=== PATIENT | male | born 1935 ===

== ENCOUNTER 2017-12-30 11:01 | Emergency (ER) | payer OTHER ==
[2017-12-30 11:18] VITALS: RESP 16; TEMP 98; O2SAT 97
--- NOTE | 2017-12-30 12:15 | C.PDOC ---
History Of Present Illness Patient is an 82yo male, with history of diabetes, presents to ED stating he "slept funny" 4 days ago and has left sided neck and shoulder pain. Patient reports pain is worse with movement. He denies any associated chest pain or heavy lifting. Patient states he took Tylenol with mild relief of pain. He offers no other medical complaints. No SOB. PMD: Dr. Birmingham Time Seen by Provider: 12/30/17 11:31 Chief Complaint (Nursing): Upper Extremity Problem/Injury History Per: Patient History/Exam Limitations: no limitations Onset/Duration Of Symptoms: Days Current Symptoms Are (Timing): Still Present Quality: "Pain" Exacerbating Factor(s): Movement Additional History Per: Patient Past Medical History Reviewed: Historical Data, Nursing Documentation, Vital Signs Vital Signs: Last Vital Signs Temp 98 F 12/30/17 11:14 Pulse 98 H 12/30/17 12:21 Resp 16 12/30/17 12:21 BP 151/78 H 12/30/17 12:21 Pulse Ox 97 12/30/17 13:08 - Medical History PMH: Diabetes Surgical History: No Surg Hx Family History: States: Diabetes - Social History Hx Tobacco Use: No Hx Alcohol Use: No Hx Substance Use: No - Immunization History Hx Tetanus Toxoid Vaccination: No Hx Influenza Vaccination: Yes Hx Pneumococcal Vaccination: Yes Review Of Systems Except As Marked, All Systems Reviewed And Found Negative. Cardiovascular: Negative for: Chest Pain Musculoskeletal: Positive for: Neck Pain (left), Shoulder Pain (left) Physical Exam - Physical Exam Appears: Non-toxic, No Acute Distress Skin: Normal Color, Warm, Dry Head: Atraumatic Eye(s): bilateral: Normal Inspection Ear(s): Bilateral: Normal Nose: Normal Lips: Normal Appearing Neck: Normal ROM, No Midline Cervical Tenderness, No Paracervical Tenderness, Supple Chest: Symmetrical Cardiovascular: Rhythm Regular Respiratory: Normal Breath Sounds Gastrointestinal/Abdominal: Normal Exam Extremity: No Normal ROM (+ Pain with ROM of left shoulder. no warmth noted. (+ ) tenderness left lateral shoulder), No Deformity Neurological/Psych: Oriented x3 ED Course And Treatment ECG: Interpreted By Me, Viewed By Me ECG Rhythm: Sinus Rhythm, R BBB ECG Interpretation: Normal O2 Sat by Pulse Oximetry: 97 (RA) Pulse Ox Interpretation: Normal Medical Decision Making Medical Decision Making: Impression: Arthritis, shoulder strain Plan: -- Motrin 600mg PO -- Pepcid 20mg PO EKG: sinus, RBBB, no acute findings Progress note: 12:17 PM - pts pain is better; looks well; will d/c home. Disposition Counseled Patient/Family Regarding: Studies Performed, Diagnosis, Need For Followup, Rx Given - Disposition Disposition: HOME/ ROUTINE Disposition Time: 12:11 Condition: IMPROVED Additional Instructions: Mr. Collazo, thank you for letting us take care of you today. Return to the ER if your symptoms worsen, or if any problems. Take the medication listed below as prescribed. Follow up with Dr. Birmingham in 2-3 days for a re-evaluation. Prescriptions: Ibuprofen [Motrin Tab] 1 tab PO Q8 PRN #30 tab PRN Reason: Pain, Moderate (4-7) Ranitidine HCl [Zantac] 1 tab PO BID #40 tablet Instructions: Shoulder Pain (DC) Forms: [employer] (Eth[place]ian) Print Language: EQUATORIAL GUINEAN - POA Present On Arrival: None - Clinical Impression Clinical Impression: Shoulder strain - Scribe Statement The provider has reviewed the documentation as recorded by the Scribe (Julia Perry) Provider Attestation: All medical record entries made by the Scribe were at my direction and personally dictated by me. I have reviewed the chart and agree that the record accurately reflects my personal performance of the history, physical exam, medical decision making, and the department course for this patient. I have also personally directed, reviewed, and agree with the discharge instructions and disposition.
[2017-12-30 12:21] VITALS: BP 151/78; PULSE 98
== END 2017-12-30 12:21 | disposition home or self-care (01) ==
LOC: C.ER 11:01
DX: S46.912A Strain of unspecified muscle, fascia and tendon at shoulder and upper arm level, left arm, initial encounter (principal); X58.XXXA Exposure to other specified factors, initial encounter